=== PATIENT | male | born 1965 | race Caucasian/White ===

== ENCOUNTER 2016-12-08 22:21 | Emergency (ER) | payer MEDICAID, OTHER ==
[~2016-12-08] VITALS: Ht 188 cm; Wt 110.5 kg
[2016-12-08 22:26] VITALS: Ht 188 cm; Wt 110.5 kg
--- NOTE | 2016-12-09 00:26 | ERD ---
ER Documentation Chief Complaint Date/Time DATE: 12/09/16 TIME: 00:25 Chief Complaint pelvic pain,burning pain upon urination HPI 51-year-old male emergency department for complaints of pain, lower back pain, dysuria the last one week. Patient denies any hematuria. Patient denies any fever or chills. Patient denies any nausea or vomiting. Patient describes the pelvic pain as cramping pain, 4/10 scale, radiates to the back accompanied with dysuria. Patient denies any penile discharge. Patient denies any new sexual partners. ROS All systems reviewed and are negative except as per history of present illness. Medications Home Meds Reported Medications [None] No Conflict Check 10/12/09 Allergies Allergies: Coded Allergies: No Known Drug Allergies (Verified Allergy, Mild, 10/12/09) PMhx/Soc History of Surgery: Yes (2004 RIGHT FOOT SURGERY) Hx Neurological Disorder: No Hx Respiratory Disorders: No Hx Cardiac Disorders: No Hx Miscellaneous Medical Probl: No Hx Alcohol Use: No Hx Substance Use: No Hx Tobacco Use: No Smoking Status: Never smoker FmHx Family History: No coronary disease, No diabetes, No other Physical Exam Vitals Vital Signs Date Time Temp Pulse Resp B/P Pulse Ox O2 Delivery O2 Flow Rate FiO2 12/08/16 22:26 98.0 60 18 146/83 98 Physical Exam GENERAL: The patient is well developed and appropriate for usual state of health, in no apparent distress. CHEST: Clear to auscultation bilaterally. There are no rales, wheezes or rhonchi. HEART: Regular rate and rhythm. No murmurs, clicks, rubs or gallops. No S3 or S4. ABDOMEN: Soft, nontender and nondistended. Good bowel sounds. No rebound or guarding. No gross peritonitis. No gross organomegaly or masses. No Helms sign or McBurney point tenderness. BACK: No midline or flank tenderness. EXTREMITIES: Equal pulses bilaterally. There is no peripheral clubbing, cyanosis or edema. No focal swelling or erythema. Full range of motion. Grossly neurovascularly intact. NEURO: Alert and oriented. Cranial nerves 2-12 intact. Motor strength in all 4 extremities with 5/5 strength. Sensation grossly intact. Normal speech and gait. SKIN: There is no apparent rash or petechia. The skin is warm and dry. HEMATOLOGIC AND LYMPHATIC: There is no evidence of excessive bruising or lymphedema. No gross cervical, axillary, or inguinal lymphadenopathy. : No scrotal swelling, no scrotal tenderness, no testicular tenderness, no redness, no lesions, no penile discharge noted. Results 24 hrs Laboratory Tests Test 12/09/16 01:12 Urine Bilirubin NEGATIVE Urine Clarity CLEAR Urine Color LT. YELLOW Urine Glucose NEGATIVE% Urine Hemoglobin NEGATIVE Urine Ketones NEGATIVE Urine Leukocyte Esterase NEGATIVE Urine Nitrite NEGATIVE Urine Specific Tropic 1.010 Urine Total Protein NEGATIVE Urine Urobilinogen 0.2 E.U./dL Urine pH 6.5 PROCEDURE: CT abdomen and pelvis without contrast. CLINICAL INDICATION: Abdominal pain TECHNIQUE: CT scan of the abdomen and pelvis without contrast was performed. Sagittal and coronal reformatted images were obtained from the axial source images. CTDI = 22.48 mGy; DLP = 1395.30 mGy-cm COMPARISON: None available. FINDINGS: Visualized lower thorax: The lung bases are clear. There is no evidence for pleural effusion. Liver, gallbladder, pancreas and spleen: The liver is normal and size, contour and attenuation. There is no evidence for a liver mass or ductal dilatation. The gallbladder is unremarkable. No common bile duct abnormality is demonstrated. The pancreas is unremarkable. The spleen is normal in size. Adrenal glands and genitourinary system: The adrenal glands are normal bilaterally. The kidneys are normal and size, contour and attenuation with no evidence for masses, calculi or hydronephrosis. The ureters are unremarkable. No urinary bladder abnormality is demonstrated. The prostate gland is normal in size. The scrotum shows no abnormality. Gastrointestinal system: The stomach is normal in caliber with no abnormality of significance. The small bowel is normal in caliber with no ileus, obstruction or wall thickening. The appendix and surrounding fat are within the limits of normal. A moderate amount of fecal debris in the colon may correlate with constipation. There is no evidence for colitis or diverticulitis. Peritoneum, retroperitoneum, lymph nodes and vessels: The abdominal aorta is normal in caliber. There is no evidence for atherosclerotic calcification. The inferior vena cava is unremarkable. There is no evidence for adenopathy or mass. There is no ascites. Osseous structures and musculoskeletal findings: There is no fracture, lytic or blastic lesion. Moderate to severe lumbar spondylosis advanced for age is present with degenerative disk disease at L3-4, L4-5 and L5-S1 No muscular abnormality or soft tissue pathology is present. RPTAT:HJJR IMPRESSION: 1. No evidence of appendicitis or acute intra-abdominal pathology. 2. Suggestion of mild constipation pattern. 3. Advanced degenerative change of the lumbar spine including disk disease with vacuum phenomenon at L3-4, L4-5 and L5-S1. Physician Karyn Date Time Electronically viewed and signed by Catalino Quan Physician on 12/09/2016 00:59 JR/ CC: LARRY STEINBERG NP PROCEDURE: Scrotal ultrasound CLINICAL INDICATION: Scrotal pain TECHNIQUE: Scrotal ultrasound was performed with sagittal and transverse views. Jordan scale and color imaging was performed. Images were reviewed on high resolution PACS monitors. COMPARISON: None available FINDINGS: The right testicle measures 4 x 2.2 x 2.9 cm in dimension. There is normal size and echogenicity and morphology of the right testicle with normal blood flow. The right epididymis is normal. No hydrocele is identified. The soft tissues are unremarkable. No mass or cyst or other abnormality is seen. There is no evidence for varicocele. The left testicle measures 3.8 x 2 x 2.7 cm in dimension. There is normal size and echogenicity and morphology of the left testicle with normal blood flow. There is a 3 x 2 x 3 mm intratesticular cyst in the region of the mediastinum testis in the mid left testis. The left epididymis is normal. No hydrocele is identified. The soft tissues are unremarkable. No mass or other abnormality is present. There is no evidence for a varicocele. IMPRESSION: 3 mm intratesticular cyst in the region of the mediastinum testis in the mid left testis. Otherwise unremarkable examination. No evidence of testicular torsion. RPTAT: HJES .Jus Miller MD, Date Time Electronically viewed and signed by .Jus Miller MD, MD on 12/09/2016 02:53 .S/ CC: LARRY STEINBERG NP Procedures/MDM Medical Decision Making: Patient's dysuria and pelvic pain nonspecific at this time, no urinary tract infection though a urine culture was sent, kidney stones noted. Urine GC chlamydia was also sent. It can be from constipation is seen in the CT scan abdomen and pelvis. Noted intratesticular cyst in the ultrasound no testicular torsion noted. No symptoms of epididymitis There is low suspicion for abdominal emergencies at this time. Patients abdominal exam is normal at this time. Patients radiology exam does not show any abdominal emergencies at this time. There is low suspicion for appendicitis, cholecystitis, abdominal aortic aneurysms or peritonitis at this time. There is low suspicion for sepsis. Patient appears well and is hemodynamically stable. Disposition: Home. Condition: Stable Prescription Pyridium tramadol, ibuprofen Colace, MiraLAX Instructions: Patient is advised to take medications as prescribed. Patient is advised to rest, increase fluid intake and do brat diet for next 1-2 days and progress as tolerated. Patient is advised that if symptoms are worse, severe abdominal pain, uncontrolled vomiting, high fever, severe flank pain, worst signs and symptoms, to return to the emergency department immediately. Otherwise, patient can follow up with primary care doctor in 5-7 days. Departure Diagnosis: Primary Impression: Dysuria Additional Impressions: Pelvic pain in male Constipation Constipation type: unspecified constipation type Qualified Code: K59.00 - Constipation, unspecified constipation type Testicular cyst Condition: Stable Patient Instructions: Dysuria Additional Instructions: Patient is advised to take medications as prescribed. Patient is advised to rest , increase fluid intake and do brat diet for next 1-2 days and progress as tolerated. Patient is advised that if symptoms are worse, severe abdominal pain , uncontrolled vomiting, high fever, severe flank pain, worst signs and symptoms , to return to the emergency department immediately. Otherwise, patient can follow up with primary care doctor in 5-7 days. LARRY STEINBERG NP Dec 09, 2016 00:26
--- NOTE | 2016-12-09 00:59 | RADRPT ---
PROCEDURE: CT abdomen and pelvis without contrast. CLINICAL INDICATION: Abdominal pain TECHNIQUE: CT scan of the abdomen and pelvis without contrast was performed. Sagittal and coronal reformatted images were obtained from the axial source images. CTDI = 22.48 mGy; DLP = 1395.30 mGy- cm COMPARISON: None available. FINDINGS: Visualized lower thorax: The lung bases are clear. There is no evidence for pleural effusion. Liver, gallbladder, pancreas and spleen: The liver is normal and size, contour and attenuation. Th ere is no evidence for a liver mass or ductal dilatation. The gallbladder is unremarkable. No comm on bile duct abnormality is demonstrated. The pancreas is unremarkable. The spleen is normal in si ze. Adrenal glands and genitourinary system: The adrenal glands are normal bilaterally. The kidneys are normal and size, contour and attenuation with no evidence for masses, calculi or hydronephrosis. T he ureters are unremarkable. No urinary bladder abnormality is demonstrated. The prostate gland is normal in size. The scrotum shows no abnormality. Gastrointestinal system: The stomach is normal in caliber with no abnormality of significance. The small bowel is normal in caliber with no ileus, obstruction or wall thickening. The appendix and s urrounding fat are within the limits of normal. A moderate amount of fecal debris in the colon may correlate with constipation. There is no evidence for colitis or diverticulitis. Peritoneum, retroperitoneum, lymph nodes and vessels: The abdominal aorta is normal in caliber. The re is no evidence for atherosclerotic calcification. The inferior vena cava is unremarkable. There is no evidence for adenopathy or mass. There is no ascites. Osseous structures and musculoskeletal findings: There is no fracture, lytic or blastic lesion. Mod erate to severe lumbar spondylosis advanced for age is present with degenerative disk disease at L3- 4, L4-5 and L5-S1 No muscular abnormality or soft tissue pathology is present. RPTAT:HJJR IMPRESSION: 1. No evidence of appendicitis or acute intra-abdominal pathology. 2. Suggestion of mild constipation pattern. 3. Advanced degenerative change of the lumbar spine including disk disease with vacuum phenomenon a t L3-4, L4-5 and L5-S1. Catalino Kadeem, Physician Date Time Electronically viewed and signed by Catalino Qaun, Physician on 12/09/2016 00:59 /
[2016-12-09 01:42] LABS: ADD UMIC NO; URINE BILIRUBIN (Dip) NEGATIVE (NEGATIVE); URINE BLOOD (Dip) NEGATIVE (NEGATIVE); URINE COLOR LT. YELLOW (YELLOW); URINE GLUCOSE (Dip) NEGATIVE (NEGATIVE); URINE KETONES (Dip) NEGATIVE (NEGATIVE); URINE LEUKOCYTE ESTERASE (Dip) NEGATIVE (NEGATIVE); URINE NITRITE (Dip) NEGATIVE (NEGATIVE); URINE TOTAL PROTEIN (Dip) NEGATIVE (NEGATIVE); URINE UROBILINOGEN (Dip) 0.2 E.U./dL (0.1-1.0)
--- NOTE | 2016-12-09 02:53 | RADRPT ---
PROCEDURE: Scrotal ultrasound CLINICAL INDICATION: Scrotal pain TECHNIQUE: Scrotal ultrasound was performed with sagittal and transverse views. Jordan scale and co yevgeniy imaging was performed. Images were reviewed on high resolution PACS monitors. COMPARISON: None available FINDINGS: The right testicle measures 4 x 2.2 x 2.9 cm in dimension. There is normal size and echogenicity and morphology of the right testicle with normal blood flow. The right epididymis is normal. No hydroc joyce is identified. The soft tissues are unremarkable. No mass or cyst or other abnormality is seen . There is no evidence for varicocele. The left testicle measures 3.8 x 2 x 2.7 cm in dimension. There is normal size and echogenicity and morphology of the left testicle with normal blood flow. There is a 3 x 2 x 3 mm intratesticular cyst in the region of the mediastinum testis in the mid left testis. The left epididymis is normal. No hydrocele is identified. The soft tissues are unremarkable. No mass or other abnormality is presen t. There is no evidence for a varicocele. IMPRESSION: 3 mm intratesticular cyst in the region of the mediastinum testis in the mid left testis. Otherwise unremarkable examination. No evidence of testicular torsion. RPTAT: HJES .Jus Miller MD, MD Date Time Electronically viewed and signed by .Jus Miller MD, on 12/09/2016 02:53 .S/
[2016-12-09] MEDS ORDERED: POLY17PO6 PO (03:17)
[2016-12-09] MEDS ORDERED: TRAM50TA2 PO (03:17)
[2016-12-09] MEDS ORDERED: DOCU-144 PO (03:17)
[2016-12-09] MEDS ORDERED: IBUP-1542 PO (03:17)
[2016-12-09] MEDS ORDERED: PHEN-538 PO (03:17)
== END 2016-12-09 03:50 | disposition home or self-care (01) ==
LOC: FTE 22:21
DX: R30.0 Dysuria (principal); R10.2 Pelvic and perineal pain; K59.00 Constipation, unspecified; N44.2 Benign cyst of testis
CPT/HCPCS: 74176; 76870; 81003; 87591

== ENCOUNTER 2018-01-31 12:37 | Emergency (ER) | END 2018-01-31 16:28 | disposition home or self-care (01) ==